=== PATIENT | female | born 1955 | race Caucasian/White ===

== ENCOUNTER 2017-12-10 03:25 | Emergency (ER) | payer OTHER ==
--- NOTE | 2017-12-10 03:37 | ER Report ---
History and Physical Time Seen By MD: 03:37 Hx. of Stated Complaint: patient started on Nitrofurantoin yesterday for urinary tract infection, patient started having head, low grade nausea after first pill, then this morning she woke up vomiting, throat feels tight and it feels like she is short of breath. patient having diarrhea as well. HPI/ROS CHIEF COMPLAINT: possible reaction to antibiotic HISTORY OF PRESENT ILLNESS: This is a 62 year old female. She had been to urgent care earlier and diagnosed with UTI. Started on Macrobid. Having headache and n ausea with first use. Now with some swelling in the throat and difficulty with breathing and swallowing. No rash noted. No chest pain. No vomiting. Normal bowels. Allergies: Coded Allergies: codeine (Verified Allergy, Intermediate, vomiting, 12/10/17) nitrofurantoin (Verified Allergy, Intermediate, head ache, gi distress, 12/10/17) Home Meds Active Scripts Amoxicillin (AMOXICILLIN) 500 Mg Capsule, 1 CAP PO Q8H, #21 CAPSULE 0 Refills Prov:KELLEY HO MD 12/10/17 Ondansetron (ZOFRAN ODT) 4 Mg Tab.rapdis, 4 MG PO Q6H PRN for NAUSEA/VOMITING, #20 TAB.SHABBIR 0 Refills Prov:KELLEY HO MD 12/10/17 Prednisone (PREDNISONE) 20 Mg Tablet, 40 MG PO QDAY, #4 TAB 0 Refills Prov:KELLEY HO MD 12/10/17 Reviewed Nurses Notes: Yes Constitutional Vital Sign - Last 24 Hours 12/10/17 12/10/17 12/10/17 12/10/17 03:31 03:55 04:00 04:25 Temp 98.3 Pulse 78 73 74 Resp 19 9 B/P (MAP) 135/67 121/75 (90) Pulse Ox 95 93 O2 Delivery Room Air 12/10/17 12/10/17 12/10/17 12/10/17 04:30 04:55 05:00 05:10 Pulse 73 72 Resp 18 9 B/P (MAP) 122/76 (91) 138/83 (101) Pulse Ox 93 89 12/10/17 05:15 Pulse 72 Resp 14 Pulse Ox 88 Physical Exam General Appearance: The patient is alert, has no immediate need for airway protection and no current signs of toxicity. Eyes: Pupils equal and round no injection. ENT: Normal oral mucosa. Moist mucous membranes. Normal posterior oropharynx. Cannot see any swelling in visible area. Neck: Neck is supple and non tender. Respiratory: Chest is non tender, lungs are clear to auscultation. Cardiac: regular rate and rhythm Musculoskeletal: Extremities have full range of motion. Skin: No rashes or lesions. DIFFERENTIAL DIAGNOSIS: After history and physical exam differential diagnosis was considered for apparent reaction to macrobid. Will give Benadryl, Pr ednisone, and Pepcid. Zofran for nausea. Will need to replace the antibiotic with a different one. Medical Decision Making ED Course/Re-evaluation ED Course Patient feels better after medications (Prednisone 40mg, Benadryl 50mg, and Pepcid 20mg). Also had Zofran 4mg ODT. Later given Ibuprofen for headache. Take home medicines given and prescriptions to fill later. See instructions below. Decision to Disposition Date: Dec 10, 2017 Decision to Disposition Time: 05:08 Depart Departure Latest Vital Signs Vital Signs Date Time Temp Pulse Resp B/P (MAP) Pulse Ox O2 Delivery O2 Flow Rate FiO2 12/10/17 05:15 72 14 88 12/10/17 05:00 138/83 (101) 12/10/17 03:31 98.3 Room Air Impression: Primary Impression: Allergic reaction Condition: Improved Disposition: HOME OR SELF-CARE New Scripts Amoxicillin (AMOXICILLIN) 500 Mg Capsule 1 CAP PO Q8H, #21 CAPSULE 0 Refills Prov: KELLEY HO MD 12/10/17 Ondansetron (ZOFRAN ODT) 4 Mg Tab.rapdis 4 MG PO Q6H PRN for NAUSEA/VOMITING, #20 TAB.SHABBIR 0 Refills Prov: KELLEY HO MD 12/10/17 Prednisone (PREDNISONE) 20 Mg Tablet 40 MG PO QDAY, #4 TAB 0 Refills Prov: KELLEY HO MD 12/10/17 Patient Instructions: General Allergic Reaction (ED) Additional Instructions: Start Amoxicillin 500mg three times a day for 7 days. Stop the Nitrofurantoin and would recommend adding this to your list of allergies to medicine. For the allergic reaction. Take Prednisone 20mg tablets, 2 tablets once a day for 2 more days. Take Benadryl 25mg tablets, take 1-2 every 6 hours as needed for swelling in the throat or itching/rash. Take Pepcid 20mg, one every 12 hours. For nausea, take Zofran 4mg, one every 4 hours as needed for nausea. Use Tylenol or Ibuprofen for headache. Problem Qualifiers Primary Impression: Allergic reaction Encounter type: initial encounter Qualified Codes: T78.40XA - Allergy, unspecified, initial encounter KELLEY HO MD Dec 10, 2017 03:37
[2017-12-10] MEDS ORDERED: FAMOTIDINE 20 MG TAB PO ONE ×2 (03:55→05:10)
[2017-12-10] MEDS ORDERED: diphenhydrAMINE 25 MG CAP PO ONE (03:55)
[2017-12-10] MEDS ORDERED: predniSONE 20 MG TAB PO ONE (03:55)
[2017-12-10] MEDS ORDERED: ONDANSETRON 4 MG ODT TABDP SL ONE (04:00)
[2017-12-10 05:00] VITALS: BP 138/83
[2017-12-10] MEDS ORDERED: IBUPROFEN 800 MG TAB PO ONE (05:05)
[2017-12-10] MEDS ORDERED: diphenhydrAMINE 25 MG CAP TH PO ONE (05:10)
[2017-12-10] MEDS ORDERED: AMOXICILLIN 500 MG CAP PO ONE (05:10)
[2017-12-10] MEDS ORDERED: ONDANSETRON 4 MG ODT TH SL ONE (05:10)
[2017-12-10] MEDS ORDERED: ONDA4TAB PO (05:11)
[2017-12-10] MEDS ORDERED: PRED20TA6 PO (05:11)
[2017-12-10] MEDS ORDERED: AMOX-362 PO (05:11)
== END 2017-12-10 05:28 | disposition home or self-care (01) ==
LOC: ER 04:03
DX: T78.40XA Allergy, unspecified, initial encounter (principal)
CPT/HCPCS: 99283; J7512; Q0163; S0119